=== PATIENT | female | born 1995 | race Caucasian/White ===

== ENCOUNTER 2020-01-13 18:08 | Emergency (ER) | payer MEDICAID ==
[~2020-01-13] VITALS: Ht 170.2 cm; Wt 88.9 kg
[2020-01-13 18:21] VITALS: BP 102/72
[2020-01-13] MEDS ORDERED: KETOROLAC 30 MG/ML VIAL IVP ONE (20:00)
[2020-01-13] MEDS ORDERED: NACL 0.9% 1,000 ML IV ONE (20:00)
[2020-01-13 20:02] LABS: BASOPHILS % (AUTO) 0.6 % (0.0-2.0); EOSINOPHILS % (AUTO) 0.6 % (0.0-4.0); HEMATOCRIT 41.8 % (36-48); HEMOGLOBIN 13.9 g/dL (12.0-16.0); LYMPHOCYTES # (AUTO) 0.6 K/uL (2.5-16.5); LYMPHOCYTES % (AUTO) 10.3 % (20.5-51.1); MEAN CORPUSCULAR HEMOGLOBIN 32 pg (27-31); MEAN CORPUSCULAR HGB CONC 33 g/dL (33-37); MEAN CORPUSCULAR VOLUME 95.9 fL (80-94); MONOCYTES # (AUTO) 0.4 K/uL (0.8-1.0); MONOCYTES % (AUTO) 6.7 % (1.7-9.3); NEUTROPHILS # (AUTO) 4.9 K/uL (1.8-7.7); NEUTROPHILS % (AUTO) 81.8 % (42.2-75.2); PLATELET COUNT (AUTO) 213 K/uL (140-450); RED BLOOD CELL COUNT(AUTO) 4.36 MIL/uL (4.20-5.40); RED CELL DISTRIBUTION WIDTH 13.8 % (11.6-13.7)
[2020-01-13 20:30] LABS: ANION GAP 15.9 (8-16); CARBON DIOXIDE 23.4 mmol/L (21-32); CREATININE 0.9 mg/dL (0.6-1.3); POTASSIUM 3.3 mmol/L (3.5-5.1)
[2020-01-13 20:36] LABS: ALBUMIN 3.5 g/dL (3.4-5.0); TOTAL BILIRUBIN 0.4 mg/dL (0.0-1.0)
[2020-01-13] MEDS ORDERED: diphenhydrAMINE 50 MG/ML VIAL IVP ONE (21:00)
[2020-01-13] MEDS ORDERED: KETOROLAC 30 MG/ML VIAL ONE (21:08)
[2020-01-13 22:47] LABS: APPEARANCE,URINE CLEAR (CLEAR); BILIRUBIN,URINE NEGATIVE (NEGATIVE); BLOOD, URINE 3+ (NEGATIVE); COLOR,URINE YELLOW (YELLOW); LEUKOCYTE ESTERASE ,URINE NEGATIVE (NEGATIVE); NITRITE, URINE NEGATIVE (NEGATIVE); PH,URINE 5.5 (5.0-9.0); UGLUCOSE NEGATIVE (NEGATIVE)
[2020-01-13 23:04] LABS: WBC,URINE 0-5 /HPF (0-5)
[2020-01-13 23:54] VITALS: BP 104/58
== END 2020-01-13 23:54 | disposition home or self-care (01) ==
LOC: MED 18:08
DX: R10.12 Left upper quadrant pain (principal); R10.11 Right upper quadrant pain
CPT/HCPCS: 36415; 74177; 76705; 80053; 81001; 81025; 83690; 85025; 96374; 96375; 99285; J1200; J1885; J7030; Q0092; Q9967

== ENCOUNTER 2020-10-30 16:56 | Emergency (ER) | payer MEDICAID ==
[~2020-10-30] VITALS: Ht 167.6 cm; Wt 90.7 kg
[2020-10-30 18:34] VITALS: BP 121/72
[2020-10-30 18:46] LABS: BASOPHILS # (AUTO) 0.1 K/uL (0.00-0.22); BASOPHILS % (AUTO) 0.9 % (0.0-2.0); EOSINOPHILS # (AUTO) 0.1 K/uL (0-0.4); EOSINOPHILS % (AUTO) 1.2 % (0.0-4.0); HEMOGLOBIN 13.3 g/dL (12.0-16.0); LYMPHOCYTES % (AUTO) 23.7 % (20.5-51.1); MEAN CORPUSCULAR HEMOGLOBIN 32 pg (27-31); MEAN CORPUSCULAR HGB CONC 33 g/dL (33-37); MEAN CORPUSCULAR VOLUME 95.7 fL (80-94); MONOCYTES # (AUTO) 0.8 K/uL (0.8-1.0); NEUTROPHILS # (AUTO) 5.6 K/uL (1.8-7.7); NEUTROPHILS % (AUTO) 65.2 % (42.2-75.2); PLATELET COUNT (AUTO) 233 K/uL (140-450); RED BLOOD CELL COUNT(AUTO) 4.18 MIL/uL (4.20-5.40); RED CELL DISTRIBUTION WIDTH 13.4 % (11.6-13.7); WHITE BLOOD COUNT (AUTO) 8.6 K/uL (4.8-10.8)
--- NOTE | 2020-10-30 19:15 | NUR ---
SEEN BY PA WITH ORDERS, CARRIED OUT
[2020-10-30 22:20] VITALS: BP 118/79
--- NOTE | 2020-10-30 22:20 | NUR ---
Patient discharged with v/s stable. Written and verbal after care instructions given and explained. Patient verbalized understanding. Ambulatory with steady gait. All questions addressed prior to discharge. Advised to follow up with PMD.
== END 2020-10-30 22:20 | disposition home or self-care (01) ==
LOC: MED 16:56
DX: O03.9 Complete or unspecified spontaneous abortion without complication (principal); Z3A.01 Less than 8 weeks gestation of pregnancy
CPT/HCPCS: 36415; 76801; 84702; 85025; 86900; 86901; 99284

== ENCOUNTER 2020-12-12 18:12 | Emergency (ER) | payer MEDICAID ==
[~2020-12-12] VITALS: Ht 167.6 cm; Wt 87.5 kg
[2020-12-12 18:26] VITALS: BP 117/79
--- NOTE | 2020-12-12 18:51 | NUR ---
25 Y/O FEMALE C/O RLQ ABDOMINAL PAIN, NAUSEA , LOSS OF APPETITE X3 DAYS. LMP 12/11/20. SEEN HERE FOR [facility] 10/30/20. PT WAS SEEN AT [place] YESTERDAY, PT WAS TOLD SHE HAS A OVARIAN CYST AND WAS GIVEN MOTRIN. PT NEVER FILLED RX AND DENIES TAKING ANYTHING FOR THE PAIN. ON ASSESSMENT, ABD IS FLAT, SOFT, AND TENDER ON PALPATION IN RLQ WITH ACTIVE BOWEL SOUNDS IN ALL 4 QUADRANTS. PT STATED LBM X2 DAYS AGO. PT DENIES DYSURIA. PT STATES PAIN 8/10 DULL AND CONTINUOUS NONRADIATING. PT IS A/O X4 WITH EVEN AND UNLABORED RESPIRATIONS OBSERVED. COVID TESTED 2 WEEKS AGO: NEGATIVE PMH:ASTHMA AND ECTOPIC PREGANCY 11/11 NKA
--- NOTE | 2020-12-12 19:10 | NUR ---
received report from cee sage
--- NOTE | 2020-12-12 19:11 | NUR ---
GAVE REPORT TO MANUEL DARNELL, TRANSFER OF CARE AT THIS TIME
--- NOTE | 2020-12-12 19:15 | NUR ---
pt c/o constant 8/10 rlq pain and requesting med, md burnham aware
--- NOTE | 2020-12-12 19:18 | NUR ---
ultrasound at bedside
[2020-12-12] MEDS ORDERED: KETOROLAC 60 MG/2 ML VIAL IM ONE (19:20)
[2020-12-12 19:53] VITALS: BP 119/80
[2020-12-12 20:48] LABS: APPEARANCE,URINE CLOUDY (CLEAR); BILIRUBIN,URINE NEGATIVE (NEGATIVE); BLOOD, URINE 3+ (NEGATIVE); COLOR,URINE YELLOW (YELLOW); LEUKOCYTE ESTERASE ,URINE TRACE (NEGATIVE); NITRITE, URINE POSITIVE (NEGATIVE); PH,URINE 8.5 (5.0-9.0); UGLUCOSE NEGATIVE (NEGATIVE)
[2020-12-12 20:58] LABS: WBC,URINE 0-5 /HPF (0-5)
[2020-12-12 20:59] LABS: TRIPLE PHOSPHATE CRYSTAL,UR 30-50 /HPF (None Seen)
== END 2020-12-12 19:52 | disposition home or self-care (01) ==
LOC: MED 18:12
DX: N83.292 Other ovarian cyst, left side (principal); N83.291 Other ovarian cyst, right side; J45.909 Unspecified asthma, uncomplicated
CPT/HCPCS: 76856; 81001; 81025; 87086; 96372; 99284; J1885